=== PATIENT | female | born 2000 | race Two or more races ===

== ENCOUNTER 2025-06-23 11:04 | Emergency (ER) | payer OTHER ==
[~2025-06-23] VITALS: Ht 170.2 cm; Wt 65.8 kg
[2025-06-23] MEDS ORDERED: SOD BORATE/BORIC AC/WATER/NACL 120 ML BOTTLE OP ONE (15:00)
[2025-06-23] MEDS ORDERED: CIPROFLOXACIN2.5 ML OP (15:17)
[2025-06-23] MEDS ORDERED: ALLERGY EYE DRO15 ML OP (15:17)
[2025-06-23] MEDS ORDERED: SYSTANE 0.3-0.415 ML OP (15:37)
== END 2025-06-23 15:42 ==
LOC: ER 11:05
DX: H57.8A2 Foreign body sensation, left eye (principal)